=== PATIENT | female | born 2000 | race Native Hawaiian/Other Pacific Islander ===

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

== ENCOUNTER 2022-12-10 12:53 | Emergency (ER) | payer OTHER ==
[~2022-12-10] VITALS: Ht 162.6 cm; Wt 125.2 kg
[2022-12-10 13:33] LABS: PLATELET COUNT 219 K/uL (152-353)
[2022-12-10 14:52] VITALS: BP 145/68; TEMP 98.8
== END 2022-12-10 14:52 | disposition home or self-care (01) ==
LOC: ED 12:53
PROVIDERS: Family Medicine
DX: E86.0 Dehydration (principal); R42 Dizziness and giddiness
CPT/HCPCS: 36415; 80053; 81000; 81025; 82550; 85027; 93005; 96360; 99284